=== PATIENT | female | born 1975 | race Caucasian/White ===

== ENCOUNTER 2023-10-23 19:23 | Emergency (ER) | payer SELFPAY ==
[~2023-10-23] VITALS: Ht 160 cm; Wt 70.0 kg
[2023-10-23 19:34] VITALS: BP 136/74; PULSE 94; RESP 16; TEMP 97.5; O2SAT 100
== END 2023-10-23 20:44 | disposition home or self-care (01) ==
LOC: ER 19:23
DX: R51.9 Headache, unspecified (principal); V98.8XXA Other specified transport accidents, initial encounter; Y93.89 Activity, other specified; Y92.89 Other specified places as the place of occurrence of the external cause; Y99.8 Other external cause status
CPT/HCPCS: 99283